=== PATIENT | female | born 1995 | race African-American/Black ===

== ENCOUNTER 2020-07-18 15:24 | Outpatient (CLI) | payer OTHER, SELFPAY ==
--- NOTE | ~2020-07-18 | US_ITS ---
EXAMINATION: US thyroid DATE: 07/18/2020 15:41 INDICATION: Neck swelling TECHNIQUE: Multiple ultrasound images of the thyroid were obtained. COMPARISON: None. FINDINGS: The right thyroid lobe measures 5.9 x 1.7 x 2.2 cm. The left thyroid lobe measures 5.8 x 1.7 x 2.0 c m. Thyroid isthmus measures 6 mm in thickness. There is heterogeneous decreased echogenicity and coar sened echotexture with normal vascular flow throughout the thyroid. Wider than tall 9 mm solid hypoec hoic nodule with smooth margins and without echogenic foci in the left thyroid lobe. (TI-RADS 4, mode rately suspicious , FNA if >=1.5 cm, annual followup is >1 cm). IMPRESSION: 1. Enlarged thyroid with heterogeneous decreased echogenicity which could be seen with [place]'s th yroiditis. 2. 9 mm TI RADS 4 left thyroid nodule which remains below threshold for consensus criteria for biopsy or follow-up. Reviewed, dictated and finalized at location A. IMPRESSION: 1. Enlarged thyroid with heterogeneous decreased echogenicity which could be se en with [place]'s thyroiditis. 2. 9 mm TI RADS 4 left thyroid nodule which remains below threshold for consens us criteria for biopsy or follow-up.
== END 2020-07-18 15:25 ==
LOC: MICIMG 15:26
PROVIDERS: Visit Provider Physician Assistant
DX: R22.1 Localized swelling, mass and lump, neck (principal)
CPT/HCPCS: 76536